=== PATIENT | male | born 1970 | race Caucasian/White ===

== ENCOUNTER 2023-01-26 15:50 | Emergency (ER) | payer OTHER, SELFPAY ==
[2023-01-26 15:56] VITALS: BP 130/83; PULSE 76; RESP 20; TEMP 36.8; O2SAT 97
--- NOTE | 2023-01-26 16:17 | ED.URI ---
HPI - URI/Sore Throat General Chief Complaint: Upper Respiratory Infection Stated Complaint: Shortness of Breath/Cough Time Seen by Provider: 01/26/23 16:17 Source: patient and RN notes reviewed Mode of arrival: ambulatory Limitations: no limitations History of Present Illness HPI Narrative: 52-year-old male with hx DM and RA presented for complaint of sinus pressure, nasal drainage, cough for over 1 week. He endorses today the cough has gotten worse. Cough results in spells where he feels he can not catch his breath, endorses wheezing, and feels lightheaded after a coughing spell. He denies chest pain, palpitations, nausea, vomiting, diarrhea, chills. Smokes 1PPD. Taking Xyzal. MD elicited complaint: cough Related Data Home Medications Medication Instructions Recorded Confirmed folic acid 1 mg tablet 01/26/23 hydroxychloroquine 200 mg tablet mg PO 01/26/23 methotrexate sodium 2.5 mg tablet mg 01/26/23 tadalafil 20 mg tablet mg 01/26/23 Allergies Allergy/AdvReac Type Severity Reaction Status Date / Time Sulfa (Sulfonamide Allergy Rash Verified 01/26/23 15:57 Antibiotics) Review of Systems Review of Systems: CONSTITUTIONAL: Denies malaise, chills, sweats, fever EYES: Denies visual changes, redness, or discharge ENT: Reports rhinorrhea, congestion, sinus pain, denies otalgia, sore throat CARDIOVASCULAR: Denies chest pain, palpitations, edema RESPIRATORY: per HPI GASTROINTESTINAL: Denies abdominal pain, nausea, vomiting, diarrhea SKIN: Denies rash or itching MUSCULOSKELETAL: Denies myalgia PMFSH Past Medical History Medical History (Updated 01/26/23 @ 16:29 by Shayy Nava, MARLENY) Diabetes Rheumatoid arthritis Exam Narrative: GENERAL: mildly Ill-appearing, nontoxic no acute distress. HEAD: Normocephalic EYES: PERRLA, conjunctivae clear ENT: Mucous membranes moist. TM pearly frost with dull light reflex bilaterally; no tragal tenderness. Oropharynx erythematous without lesions or exudate NECK: Supple. No lymphadenopathy CHEST: Clear to auscultation, breath sounds equal. Frequent cough when attempting deep breath, audible wheezing at that time. No respiratory distress, speaks in full sentences. HEART: Regular rate and rhythm. No murmur heard. SKIN: Warm, dry, no rash. NEURO: Alert and oriented x3. PSYCH: Normal mood and affect Course Course Emergency Course: Patient is aware of diagnosis, understands and agrees to treatment plan. Anticipatory guidance given. Patient agrees to follow-up as directed and is aware of reasons to seek care at the emergency department. Portions of this record may have been created with voice recognition software Level of Care: Express Care Visit Vital Signs Vital signs: Vital Signs Temperature 98.3 F 01/26/23 15:56 Pulse Rate 76 01/26/23 15:56 Respiratory Rate 20 01/26/23 15:56 Blood Pressure 130/83 01/26/23 15:56 Pulse Oximetry 97 01/26/23 15:56 Oxygen Delivery Room Air 01/26/23 15:56 Temperature 98.3 F 01/26/23 15:56 Pulse Rate 76 01/26/23 15:56 Respiratory Rate 20 01/26/23 15:56 Blood Pressure 130/83 01/26/23 15:56 Pulse Oximetry 97 01/26/23 15:56 Oxygen Delivery Room Air 01/26/23 15:56 reviewed MDM - URI/Sore Throat MDM Narrative Medical decision making narrative: Advised supportive measures and signs/symptoms to go to the ER. Pt is appropriate for outpt treatment and f/u. Differential Diagnosis Differential diagnosis: Likely upper respiratory infection, sinusitis, viral infection and bronchitis Discharge Plan Discharge Clinical Impression: Upper respiratory infection Qualifiers: URI type: unspecified URI Qualified Code(s): J06.9 - Acute upper respiratory infection, unspecified Patient Disposition: Home, Self-Care Condition: Stable Additional Instructions: Take medication as directed Recommend Flonase spray and Zyrtec (or Claritin/Mitzi) over the counter Cough syrup may caus
== END 2023-01-26 16:34 | disposition home or self-care (01) ==
PROVIDERS: Emergency Provider Nurse Practitioner Family; PCP Family Medicine
DX: J06.9 Acute upper respiratory infection, unspecified (principal); E11.9 Type 2 diabetes mellitus without complications; M06.9 Rheumatoid arthritis, unspecified; F17.210 Nicotine dependence, cigarettes, uncomplicated
CPT/HCPCS: 99213; G0463